=== PATIENT | male | born 1960 | race Caucasian/White ===

== ENCOUNTER 2024-04-10 22:10 | Emergency (ER) | payer SELFPAY ==
[~2024-04-10] VITALS: Ht 172.7 cm; Wt 77.1 kg
[2024-04-10 22:17] VITALS: PULSE 87; RESP 19; TEMP 97.2; O2SAT 95
[2024-04-10] MEDS: ONDANSETRON HCL 4 MG/2 ML VIAL IVP ONE (22:48)
[2024-04-10] MEDS: NACL 0.9% 1,000 ML IV ONE (22:50)
[2024-04-10] MEDS: KETOROLAC TROMETHAMINE 30 MG VIAL IVP ONE (22:50)
[2024-04-10 23:07] LABS: ALBUMIN 4.1 g/dL (3.4-4.8); BILIRUBIN,DIRECT 0.1 mg/dL (0.0-0.3); CALCIUM 9.1 mg/dL (8.4-11.0); CREATININE 1.27 mg/dL (0.55-1.30); POTASSIUM 4.3 mmol/L (3.5-5.1); TOTAL BILIRUBIN 0.3 mg/dL (0.0-1.0); TOTAL PROTEIN, SERUM 8.2 g/dL (6.4-8.3)
[2024-04-10 23:08] LABS: BASOPHILS # (AUTO) 0.1 K/uL (0.0-0.2); BASOPHILS % (AUTO) 0.7 % (0.0-2.0); EOSINOPHILS # (AUTO) 0.4 K/uL (0.0-0.4); EOSINOPHILS % (AUTO) 3.7 % (0.0-4.0); HEMATOCRIT 44.5 % (36-54); HEMOGLOBIN 15.8 g/dL (14.0-18.0); LYMPHOCYTES # (AUTO) 2.8 K/uL (1.0-5.5); LYMPHOCYTES % (AUTO) 25.3 % (20.5-51.5); MEAN CORPUSCULAR HEMOGLOBIN 33 pg (27-31); MEAN CORPUSCULAR HGB CONC 36 % (32-36); MEAN CORPUSCULAR VOLUME 93 fL (79.0-98.0); MONOCYTES # (AUTO) 0.8 K/uL (0.0-1.0); MONOCYTES % (AUTO) 7.5 % (1.7-9.3); NEUTROPHILS % (AUTO) 62.8 % (40.0-70.0); PLATELET COUNT (AUTO) 308 K/uL (130-430); RED BLOOD CELL COUNT(AUTO) 4.78 MIL/uL (4.2-6.2); RED CELL DISTRIBUTION WIDTH 12.9 % (9.0-15.0); WHITE BLOOD COUNT (AUTO) 11.1 K/uL (4.8-10.8)
[2024-04-10 23:24] LABS: PROTHROMBIN TIME 9.9 SECS (9.5-12.5)
[2024-04-10 23:40] LABS: BILIRUBIN,URINE NEGATIVE (NEGATIVE); BLOOD, URINE NEGATIVE (NEGATIVE); CLARITY/URINE CLEAR (CLEAR); COLOR,URINE YELLOW (YELLOW); GLUCOSE,URINE NEGATIVE (NEGATIVE); KETONES,URINE NEGATIVE (NEGATIVE); LEUKOCYTE ESTERASE ,URINE NEGATIVE (NEGATIVE); NITRITE, URINE NEGATIVE (NEGATIVE); PROTEIN URINE NEGATIVE (NEGATIVE); UROBILINOGEN,URINE 0.2 (0.2-1.0)
[2024-04-11] MEDS ORDERED: ONDA-8 TL (00:03)
[2024-04-11] MEDS ORDERED: POLY17PO4 PO (00:03)
[2024-04-11] MEDS ORDERED: PRO40 PO (00:03)
[2024-04-11] MEDS: MORPHINE 4 MG INJ. 4 MG/ML VIAL IVP ONE (00:21)
[2024-04-11 04:57] VITALS: BP_SYST 143; PULSE 89; RESP 20; TEMP 97.3; O2SAT 98
== END 2024-04-11 00:47 | disposition home or self-care (01) ==
LOC: SED 22:10
DX: K42.9 Umbilical hernia without obstruction or gangrene (principal); K59.00 Constipation, unspecified; R11.10 Vomiting, unspecified
CPT/HCPCS: 99285; 74176; 96374; 96361; 96375 ×2; 80076; 80048; 81001; 83690; 85025; 85610; 85730; 36415; J1885; J2405; J7030; J2270; 81003

== ENCOUNTER 2024-05-21 05:24 | Emergency (ER) | payer SELFPAY ==
[~2024-05-21] VITALS: Ht 172.7 cm; Wt 77.1 kg
[~2024-05-21 05:24] MED LIST: ONDA-8 TL; POLY17PO4 PO; PRO40 PO
[2024-05-21 05:36] VITALS: BP_SYST 136; PULSE 62; RESP 18; TEMP 96.3; O2SAT 97
[2024-05-21] MEDS: MORPHINE 4 MG INJ. 4 MG/ML VIAL IVP ONE (05:55)
[2024-05-21] MEDS: NACL 0.9% 1,000 ML IV ONE (05:58)
[2024-05-21] MEDS: ONDANSETRON HCL 4 MG/2 ML VIAL IVP ONE (05:58)
[2024-05-21 06:17] LABS: BASOPHILS % (AUTO) 0.3 % (0.0-2.0); EOSINOPHILS % (AUTO) 0.3 % (0.0-4.0); HEMATOCRIT 47.1 % (36-54); HEMOGLOBIN 16.1 g/dL (14.0-18.0); LYMPHOCYTES # (AUTO) 1.3 K/uL (1.0-5.5); LYMPHOCYTES % (AUTO) 8.1 % (20.5-51.5); MEAN CORPUSCULAR HEMOGLOBIN 32 pg (27-31); MEAN CORPUSCULAR HGB CONC 34 % (32-36); MEAN CORPUSCULAR VOLUME 94 fL (79.0-98.0); MONOCYTES # (AUTO) 0.5 K/uL (0.0-1.0); MONOCYTES % (AUTO) 3.1 % (1.7-9.3); NEUTROPHILS # (AUTO) 13.9 K/uL (1.8-7.7); NEUTROPHILS % (AUTO) 88.2 % (40.0-70.0); PLATELET COUNT (AUTO) 335 K/uL (130-430); RED CELL DISTRIBUTION WIDTH 12.8 % (9.0-15.0); WHITE BLOOD COUNT (AUTO) 15.7 K/uL (4.8-10.8)
[2024-05-21 06:31] LABS: ALBUMIN 4.3 g/dL (3.4-4.8); BILIRUBIN,DIRECT 0.1 mg/dL (0.0-0.3); CALCIUM 9.5 mg/dL (8.4-11.0); CREATININE 1.19 mg/dL (0.55-1.30); TOTAL BILIRUBIN 0.5 mg/dL (0.0-1.0); TOTAL PROTEIN, SERUM 8.4 g/dL (6.4-8.3)
[2024-05-21 06:48] LABS: PROTHROMBIN TIME 10.4 SECS (9.5-12.5)
[2024-05-21 07:35] LABS: BILIRUBIN,URINE NEGATIVE (NEGATIVE); BLOOD, URINE NEGATIVE (NEGATIVE); CLARITY/URINE CLEAR (CLEAR); COLOR,URINE YELLOW (YELLOW); GLUCOSE,URINE NEGATIVE (NEGATIVE); KETONES,URINE TRACE (NEGATIVE); LEUKOCYTE ESTERASE ,URINE NEGATIVE (NEGATIVE); NITRITE, URINE NEGATIVE (NEGATIVE); PH,URINE 6.5 (5.0-8.0); PROTEIN URINE NEGATIVE (NEGATIVE); UROBILINOGEN,URINE 0.2 (0.2-1.0)
[2024-05-21] MEDS ORDERED: FLEETMO RC (08:54)
[2024-05-21] MEDS ORDERED: MAGN296S8 PO (08:54)
[2024-05-21 09:00] VITALS: BP_SYST 130; PULSE 77; RESP 16; TEMP 98; O2SAT 98
== END 2024-05-21 09:00 | disposition home or self-care (01) ==
LOC: SED 05:24
DX: R10.84 Generalized abdominal pain (principal); R14.0 Abdominal distension (gaseous); Z79.899 Other long term (current) drug therapy; Z79.2 Long term (current) use of antibiotics
CPT/HCPCS: 99285; 74176; 96374; 96361; 96375; 80076; 80048; 81001; 83690; 85025; 85610; 85730; 36415; 83605; 82397; 81003; J2405; J2270; J7030